=== PATIENT | female | born 1950 | race Caucasian/White ===

== ENCOUNTER 2024-07-16 01:58 | Emergency (ER) | payer MEDICARE, SELFPAY ==
[2024-07-16] VITALS (36 sets, daily range): BP systolic 125–181; BP diastolic 67–86; PULSE 78–117; RESP 15–31; TEMP 36–36.4; O2SAT 93–99
--- NOTE | ~2024-07-16 | CT_ITS ---
EXAMINATION: CTA chest PE protocol DATE: 07/16/2024 03:35 INDICATION: Cough. Dyspnea. TECHNIQUE: Computed tomography angiography (CTA) of the chest was performed with 100 mL Omnipaque-350 intravenous contrast timed to evaluate the pulmonary arteries. Coronal maximum intensity projection 3D-reconstructions were created by the technologist. Automated exposure control and iterative reconst ruction technique were employed. The dose-length product was 227.28 mGy-cm. COMPARISON: CT abdomen and pelvis 10/11/2004 FINDINGS: There is mild scarring at the lung apices. There is mild elevation of left hemidiaphragm. T here is mild atelectasis bilaterally. No pleural effusion. The heart size is normal. No pericardial e ffusion. There is no pulmonary embolus. There is thoracic dextroscoliosis and severe spondylosis. IMPRESSION: 1. No pulmonary embolus. Reviewed, dictated and finalized at location A. EMS PROGRAMMER IMPRESSION: 1. No pulmonary embolus.
--- NOTE | 2024-07-16 02:03 | ED_ITS ---
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 She recently moved back to the area from [place], [place]. She has had dyspnea and a cough for 3 weeks. She went to urgent care a couple weeks ago and was given azithromycin and levofloxacin but is no better. She has become significantly worse in the past 3-4 days. She has some lightheadedness but no N/V or diarrhea. Related Data Allergies Allergy/AdvReac Type Severity Reaction Status Date / Time Sulfa (Sulfonamide Allergy Intermediate Rash Verified 07/16/24 02:23 Antibiotics) Review of Systems 2 Review of Systems: All systems reviewed & are unremarkable except as noted in HPI and below Exam 2 Const: General: cooperative, healthy appearing, comfortable, no acute distress, well developed, alert, awake and Physically active O rientation/consciousness: oriented to person, oriented to place and oriented to time HENMT: Head: normal to inspection, normocephalic and atraumatic Ears: h earing grossly normal bilaterally and external ears normal Face/Nose/Sinus: N ormal external nose present Eyes: General: appearance normal, both eyes and all related structures P eriorbital: periorbital findings normal Sclera: sclerae normal Pupils: E qual, round and reactive pupils present Neck: Neck: normal visual inspection Chest: Chest palpation & inspection: normal inspection of the chest Resp: Effort & Inspection: normal respiratory effort, able to speak in complete sentences and no respiratory distress Other: Diffuse end expiratory wheezes. Cardio: Jugular venous distension: no JVD Rate: regular rate Rhythm: r egular rhythm GI: Inspection: normal to inspection GI Palp: Yes Soft to palpation A uscultation: normal bowel sounds Skin: General skin exam: normal color and no rashes or lesions noted Neuro: General: oriented to person, oriented to place and oriented to time Cranial nerves: Yes Equal, round and reactive pupils present Extrem: General: normal to inspection Course Course Emergency Course: Ordered labs, duoneb, EKG and CTA EKG showed NSR with a rate of 94, normal axis and no ST elevation/depression As there was severe leukocytosis blood cultures were ordered and antibiotics were started. CT of her lungs showed no evidence of pulmonary embolism or acute pulmonary process. DDx includes bronchitis vs asthma vs CHF with that later being less likely with a BNP of 114. Will treat with steroids, albuterol and Augmentin with doxycycline to cover for bronchitis/pneumonia and asthma. Vital Signs Vital signs: Vital Signs Temperature 96.8 F L 07/16/24 01:58 Pulse Rate 99 07/16/24 01:58 Respiratory Rate 20 07/16/24 01:58 Blood Pressure 166/85 H 07/16/24 01:58 Pulse Oximetry 93 07/16/24 01:58 Oxygen Delivery Room Air 07/16/24 01:58 Temperature 96.8 F L 07/16/24 01:58 Pulse Rate 85 07/16/24 02:47 Respiratory Rate 20 07/16/24 02:47 Blood Pressure 147/82 H 07/16/24 02:16 Pulse Oximetry 96 07/16/24 02:54 Oxygen Delivery Nasal Cannula 07/16/24 02:54 Oxygen Flow Rate 2 07/16/24 02:54 Medical Decision Making Vital Signs Vital Signs: Vital Signs Temperature 96.8 F L 07/16/24 01:58 Pulse Rate 99 07/16/24 01:58 Respiratory Rate 20 07/16/24 01:58 Blood Pressure 166/85 H 07/16/24 01:58 Pulse Oximetry 93 07/16/24 01:58 Oxygen Delivery Room Air 07/16/24 01:58 Temperature 96.8 F L 07/16/24 01:58 Pulse Rate 85 07/16/24 02:47 Respiratory Rate 20 07/16/24 02:47 Blood Pressure 147/82 H 07/16/24 02:16 Pulse Oximetry 96 07/16/24 02:54 Oxygen Delivery Nasal Cannula 07/16/24 02:54 Oxygen Flow Rate 2 07/16/24 02:54 Lab Data 07/16/24 02:40 07/16/24 02:40 Labs: Lab Results 07/16/24 07/16/24 Range/Units 02:40 02:46 WBC 22.9 H* (4.8-10.8) K/mm3 RBC 4.57 (4.20-5.40) M/mm3 Hgb 13.6 (11.7-13.8) g/dL Hct 42.4 H (35.0-42.0) % MCV 92.8 (78.0-102.0) fL MCH 29.8 (27.0-31.0) pg MCHC 32.1 (32-36) g/dL RDW 14.7 H (11.6-14.4) % Plt Count 401 (150-420) K/mm3 MPV 10.3 (9.2-11.8) fl Immature Gran % (Auto) Not Reportable Neut % (Auto) Not Reportable Lymph % (Auto) Not Reportable Erath % (Auto) Not Reportable Eos % (Auto) Not Reportable Baso % (Auto) Not Reportable Lymph # (Auto) Not Reportable [place]ath # (Auto) Not Reportable Eos # (Auto) Not Reportable Baso # (Auto) Not Reportable Abs Immat Gran (auto) Not Reportable Absolute Neuts (auto) Not Reportable Absolute Nucleated RBC Not Reportable Neutrophils % (Manual) 59 (46-73) % Band Neutrophils % 0 (0-6) % Lymphocytes % (Manual) 12 L (18-44) % Monocytes % (Manual) 15 H (3-9) % Eosinophils % (Manual) 14 H (1-6) % Basophils % (Manual) 0 (0-1) % Nucleated RBC % Not Reportable Abs Neuts (Manual) 13.51 H (1.7-7.2) K/mm3 Abs Lymphs (Manual) 2.74 (1.1-4.5) K/mm3 Abs Monocytes (Manual) 3.43 H (0.1-0.90) K/mm3 Absolute Eos (Manual) 3.20 H (0.02-0.50) K/mm3 Abs Basophils (Manual) 0.00 (0-0.1) K/mm3 Platelet Estimate Adequate (Adequate) Schistocytes Not Reportable Sodium 144 (136-145) mmol/L Potassium 3.7 (3.5-5.1) mmol/L Chloride 109 H (98-108) mmol/L Carbon Dioxide 27 (21-32) mmol/L Anion Gap 8 (4-12) mmol/L BUN 16 (7-18) mg/dL Creatinine 1.06 H (0.55-1.02) mg/dL Estim Creat Clear Calc 37 ml/min Estimated GFR 51 L (59 - ) Glucose 115 H (70-99) mg/dL Calculated Osmolality 300 H (285-295) mOsm/kg Calcium 9.0 (8.5-10.1) mg/dL Magnesium 2.1 (1.8-2.4) mg/dL Total Bilirubin 0.6 (0.00-1.00) mg/dL AST 13 L (15-37) U/L ALT 31 (14-59) U/L Alkaline Phosphatase 118 H (46-116) U/L Troponin I 6.2 (0.00-60.4) ng/L NT-Pro-B Natriuret Pep 114 (0-125) pg/mL Total Protein 6.0 L (6.4-8.2) g/dL Albumin 3.5 (3.4-5.0) g/dL Influenza A (RT-PCR) Negative (Negative) Influenza B (RT-PCR) Negative (Negative) RSV (RT-PCR) Negative (Negative) SARS-CoV-2 RNA (RT-PCR) Negative (Negative) ABG Data ABG results: 07/16/24 02:40 Puncture Site Right radial ABG pH 7.39 ABG pCO2 39.0 ABG pO2 82.4 ABG PO2/FiO2 Ratio Not Reportable ABG HCO3 23.1 ABG O2 Saturation 95.5 ABG O2 Content 19.0 ABG Base Excess -1.6 L A-a Gradient Not Reportable Oxyhemoglobin 94.3 O2 Delivery Device Nasal cannula O2 Liters/Min 2.0 Discharge Plan Discharge Clinical Impression: Bronchitis Patient Disposition: Home, Self-Care Condition: Stable Instructions: Acute Bronchitis (ED) Patient Language: Norwegian Prescriptions: New prednisone 50 mg tablet 50 mg PO DAILY Qty: 4 0RF benzonatate 200 mg capsule 200 mg PO BID PRN (Reason: cough) Qty: 14 0RF albuterol sulfate 90 mcg/actuation HFA aerosol inhaler 2 puff inhalation QID PRN (Reason: shortness of breath or wheezing) Qty: 8.5 0RF amoxicillin-pot clavulanate [Augmentin] 500-125 mg tablet 1 tablet PO TID Qty: 15 0RF doxycycline hyclate 100 mg tablet 100 mg PO DAILY Qty: 10 0RF Follow-up/Referrals: UNKNOWN,DOCTOR [Primary Care Provider] -
--- NOTE | 2024-07-16 02:04 | PC.NURSE ---
COVID PCR obtained and taken to lab
--- NOTE | 2024-07-16 02:13 | ECG_ITS ---
Test Date: 2024-07-16 02:08:11 Measurements Intervals [place] Rate: 94 P: 72 DE: 184 QRS: 54 QRSD: 102 T: 58 QT: 366 QTc: 458 Interpretive Statements SINUS RHYTHM No previous ECG available for comparison Electronically Signed On 07-16-2024 16:18:37 PSYCH SPECIALIST by Fabiano Larsen M.D.
[2024-07-16] MEDS: IPRATROPIUM 0.5 MG/ALBUTEROL SULFATE 2.5 MG AMPUL.NEB 3 ML INHALATION (02:35)
[2024-07-16 02:37] LABS: Base Excess ABG -1.6 mmol/L (0-2); HCO3 ABG 23.1 mmol/L (23-29); Oxygen Saturation ABG 95.5 % (95-97); Oxyhemoglobin 94.3 % (94-100); PO2 ABG 82.4 mmHg (75-85); pH ABG 7.39 (7.35-7.45)
[2024-07-16 02:47] LABS: Device NASAL CANNULA; Modified Allen's Test Pass; Site Drawn RIGHT RADIAL
[2024-07-16 02:48] LABS: Influenza A QL RT-PCR Negative (Negative); Influenza B QL RT-PCR Negative (Negative); RSV RNA, RT-PCR Negative (Negative); SARS-CoV-2 RNA PCR Negative (Negative)
[2024-07-16 02:49] LABS: Hematocrit 42.4 % (35.0-42.0); Hemoglobin 13.6 g/dL (11.7-13.8); Mean Corpuscular HGB Conc 32.1 g/dL (32-36); Mean Corpuscular Hemoglobin 29.8 pg (27.0-31.0); Mean Corpuscular Volume 92.8 fL (78.0-102.0); Mean Platelet Volume 10.3 fl (9.2-11.8); Platelet Count Result 401 K/mm3 (150-420); Red Blood Count 4.57 M/mm3 (4.20-5.40); Red Cell Distribution Width 14.7 % (11.6-14.4)
[2024-07-16 02:53] LABS: White Blood Count 22.9 K/mm3 (4.8-10.8)
[2024-07-16 03:09] LABS: Alanine Aminotransferase 31 U/L (14-59); Albumin Level 3.5 g/dL (3.4-5.0); Alkaline Phosphatase 118 U/L (46-116); Anion Gap 8 mmol/L (4-12); Aspartate Amino Transferase 13 U/L (15-37); Bilirubin,Total 0.6 mg/dL (0.00-1.00); Blood Urea Nitrogen 16 mg/dL (7-18); Carbon Dioxide 27 mmol/L (21-32); Chloride 109 mmol/L (98-108); Estimated CRCL calculation 37 ml/min; Estimated Glomerular Filt Rate 51; Glucose 115 mg/dL (70-99); Magnesium 2.1 mg/dL (1.8-2.4); NT Pro B Type Natriuretic Pept 114 pg/mL (0-125); Osmolality Calculated 300 mOsm/kg (285-295); Potassium 3.7 mmol/L (3.5-5.1); Sodium 144 mmol/L (136-145); Troponin I 6.2 ng/L (0.00-60.4)
[2024-07-16 03:11] LABS: Band Neutrophils Percent 0 % (0-6); Eosinophils Percent Manual 14 % (1-6); Lymphocytes Absolute Manual 2.74 K/mm3 (1.1-4.5); Lymphocytes Percent Manual 12 % (18-44); Monocytes Absolute Manual 3.43 K/mm3 (0.1-0.90); Monocytes Percent Manual 15 % (3-9); Neutrophils Absolute Manual 13.51 K/mm3 (1.7-7.2); Neutrophils Percent Manual 59 % (46-73)
[2024-07-16 03:12] LABS: Basophils Percent Manual 0 % (0-1); Platelet Estimate Adequate (Adequate)
[2024-07-16] MEDS: methylPREDNISolone SOD SUCC 125 MG VIAL IV PUSH (03:21)
[2024-07-16] MEDS: levoFLOXacin 750 MG/D5W 150 ML 750 MG/150 ML BAG 100 MG IVPB (03:31)
--- NOTE | 2024-07-16 04:03 | PC.NURSE ---
pt taken to bathroom via wheelchair
--- NOTE | 2024-07-16 05:55 | PC.NURSE ---
pt taken to bathroom via wheelchair for urine specimen
[2024-07-16 06:33] LABS: Add Urine Microscopic? YES; Appearance Urine Clear (Clear); Bilirubin Urine Negative (Negative); Blood Urine Negative (Negative); Color Urine Yellow (Yellow); Glucose Urine UA Negative (Negative); Ketones Urine Negative (Negative); Leukocyte Esterase Ur Negative (Negative); Nitrate Urine Negative (Negative); Protein Urine Trace (Negative); Specific Grav Ur 1.015 (1.010-1.020); pH Urine 5.5 (5.0-8.0)
[2024-07-16 06:37] LABS: Calcium Oxalate Crystals Urine Present /hpf; RBC Urine None seen /hpf (0-2); Squamous Epithelial Cell Urine Occasional /hpf (Few); WBC Urine 0-3 /hpf (0-3)
[2024-07-16 06:38] LABS: Bacteria Urine Rare /hpf
[2024-07-16 06:57] LABS: Total Hemoglobin 14.3 g/dL (12.0-18.0)
--- NOTE | 2024-07-17 14:21 | PC.NURSE ---
final blood cultures x2 reviewed. no growth to date
--- NOTE | 2024-07-17 14:29 | PC.NURSE ---
blood culture reports x2 reviewed. no growth to date
== END 2024-07-16 07:15 | disposition home or self-care (01) ==
PROVIDERS: Emergency Provider Family Medicine
DX: J40 Bronchitis, not specified as acute or chronic (principal); I10 Essential (primary) hypertension; E78.5 Hyperlipidemia, unspecified; Z79.51 Long term (current) use of inhaled steroids; Z20.822 Contact with and (suspected) exposure to COVID-19
CPT/HCPCS: 36415; 36600; 71275; 80053; 81001; 82805; 83735; 83880; 84484; 85018; 85025; 87040; 87637; 93005; 94640; 96365; 96375; 99284; J1956; J2919; Q9967

== ENCOUNTER 2024-07-21 09:19 | Emergency (ER) | payer MEDICARE, SELFPAY ==
[2024-07-21 09:19] VITALS: BP 157/97; PULSE 90; RESP 20; TEMP 36.4; O2SAT 96
[2024-07-21 09:20] VITALS: O2SAT 96
--- NOTE | 2024-07-21 09:49 | ED.URI ---
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 She was prescribed doxycycline, Augmentin, albuterol, prednisone and benzonatate. She had blood work which revealed an elevated white cell count of 23,000. The patient had been on steroids prior to getting the blood work. She had chemistry labs which was unremarkable. She had a normal troponin /BNP, negative flu/RSV / COVID, negative CT chest for PE and lung infiltrates. Subsequently the patient is noted to have -- ongoing cough which is productive of mucoid sputum -- dyspnea on exertion -- generalized rash which is maculopapular. Rash is not itchy. Patient does not know when the rash appeared. No fever or chills MD elicited complaint: cough Pertinent past history: asthma Onset (ago): day(s) Consistency: constant Severity: moderate Description of mucous: clear Able to tolerate fluids by mouth: Yes Exacerbating factors: exertion Associated symptoms: denies other symptoms, cough and shortness of breath Treatments prior to arrival: antibiotics and other ( prednisone, albuterol, benzonatate,) Related Data Allergies Allergy/AdvReac Type Severity Reaction Status Date / Time Sulfa (Sulfonamide Allergy Intermediate Rash Verified 07/21/24 09:33 Antibiotics) Review of Systems Review of Systems: All systems reviewed & are unremarkable except as noted in HPI and below Constitutional: Constitutional: Reports as per HPI, Reports no additional constitutional complaints and Reports fatigue Eyes: Eyes: Reports as per HPI and Reports no additional eye complaints ENT: Reports system reviewed and no additional complaints, except as documented and Reports as per HPI Cardiovascular: Cardiovascular: Reports as per HPI and Reports no additional cardiovascular complaints Respiratory: Respiratory: Reports as per HPI, Reports no additional respiratory complaints, Reports cough and Reports dyspnea Gastrointestinal: Gastrointestinal: Reports as per HPI and Reports no additional gastrointestinal complaints Genitourinary: Genitourinary: Reports no additional female genitourinary complaints and Reports as per HPI Musculoskeletal: Musculoskeletal: Reports no additional musculoskeletal complaints and Reports as per HPI Integumentary/Breasts: Skin/Breast: Reports system reviewed and no additional complaints, except as docu and Reports as per HPI Neurologic: Reports system reviewed and no additional complaints, except as documented and Reports as per HPI Psychiatric: Psychiatric: Reports no additional psychiatric complaints and Reports as per HPI Endocrine: Endocrine: Reports no additional endocrine complaints and Reports as per HPI Hematologic/Lymphatic: Hematologic/Lymphatic: Reports no additional hematologic/lymphatic complaints and Reports as per HPI Allergic/Immunologic: Allergic/Immunologic: Reports no additional allergic/immunologic complaints and Reports as per HPI Exam Narrative: blood pressure is 157/97. Oxygen saturation 96% on room air with a respiratory rate of 20. Const: General: no acute distress Nutritional Appearance: well nourished Orientation/consciousness: patient oriented x3 Limitations: no limitations HENMT: Head: normal to inspection Ears: external ears normal Face/Nose/Sinus: Normal external nose present Face and sinus: normal facial exam Mouth: Yes Normal oral and palatal mucosa present Throat: posterior oropharynx normal Eyes: Conjunctivae: conjunctivae normal Pupils: Equal, round and reactive pupils present EOM: EOMs intact bilaterally Direct Ophthalmoscopy: no photophobia Other: Right eye missing Neck: Neck: normal visual inspection and no lymphadenopathy Chest: Chest palpation & inspection: normal inspection of the chest Resp: Effort & Inspection: normal respiratory effort Auscultation: wheezes Cardio: Rate: regular rate Rhythm: regular rhythm GI: GI Palp: Yes Soft to palpation Auscultation: normal bowel sounds : General: Yes no CVA tenderness Back/Spine/Pelvis: Back: no CVA tenderness Cervical Spine: collar present Skin: General skin exam: normal color Rashes: no rashes Wounds: no wounds Neuro: General: patient oriented x3, moves all extremities, no meningeal signs, no focal motor deficits and CN's II-XI intact bilaterally Cranial nerves: Yes Nystagmus not present Speech: normal speech Gait exam (Neuro): Normal gait present Extrem: General: normal to inspection and no clubbing, cyanosis or edema Psych: Mental Status: mental status grossly normal Attitude: cooperative Course Course Emergency Course: bronchospastic disease. The patient has a family history of allergies. The patient has multiple allergies in addition to bronchospasm. Patient is a nonsmoker. Does not have any pets. Would have a follow-up with a home theater specialist for PFTs. Foot treat her with steroids and add Symbicort maculopapular rash could be secondary to radiocontrast/amoxicillin Vital Signs Vital signs: Vital Signs Temperature 36.4 C 07/21/24 09:19 Pulse Rate 90 07/21/24 09:19 Respiratory Rate 20 07/21/24 09:19 Blood Pressure 157/97 H 07/21/24 09:19 Pulse Oximetry 96 07/21/24 09:19 Oxygen Delivery Room Air 07/21/24 09:19 Temperature 36.4 C 07/21/24 09:19 Pulse Rate 90 07/21/24 09:19 Respiratory Rate 20 07/21/24 09:19 Blood Pressure 157/97 H 07/21/24 09:19 Pulse Oximetry 96 07/21/24 09:20 Oxygen Delivery Room Air 07/21/24 09:20 MDM - URI/Sore Throat MDM Narrative Medical decision making narrative: bronchospasm asthma diffuse maculopapular rash Differential Diagnosis Differential diagnosis: Likely viral infection, bronchitis and influenza Medical Records Attestation: I reviewed the patient's medical records. Lab Data Attestation: I reviewed the patient's lab results. Discharge Plan Discharge Clinical Impression: Acute maculopapular rash Asthma Qualifiers: Asthma severity: moderate Asthma persistence: persistent Asthma complication type: with status asthmaticus Qualified Code(s): J45.42 - Moderate persistent asthma with status asthmaticus Patient Disposition: Home, Self-Care Condition: Stable Instructions: Antibiotic Form, Asthma (ED), Acute Rash (ED) Additional Instructions: follow-up with lung specialist for PFT and evaluation of bronchospasm Patient Language: Lithuanian Prescriptions: New budesonide-formoterol [Symbicort] 160-4.5 mcg/actuation HFA aerosol inhaler 2 puff inhalation Q12H Qty: 10.2 0RF prednisone 50 mg tablet 50 mg PO DAILY Qty: 7 0RF No Action prednisone 50 mg tablet 50 mg PO DAILY Qty: 4 0RF benzonatate 200 mg capsule 200 mg PO BID PRN (Reason: cough) Qty: 14 0RF albuterol sulfate 90 mcg/actuation HFA aerosol inhaler 2 puff inhalation QID PRN (Reason: shortness of breath or wheezing) Qty: 8.5 0RF amoxicillin-pot clavulanate [Augmentin] 500-125 mg tablet 1 tablet PO TID Qty: 15 0RF doxycycline hyclate 100 mg tablet 100 mg PO DAILY Qty: 10 0RF Follow-up/Referrals: UNKNOWN,DOCTOR [Primary Care Provider] - Time of Disposition: 10:06
[2024-07-21] MEDS: methylPREDNISolone SOD SUCC 125 MG VIAL IM (10:13)
== END 2024-07-21 10:15 | disposition home or self-care (01) ==
PROVIDERS: Emergency Provider Internal Medicine Critical Care Medicine
DX: R21 Rash and other nonspecific skin eruption (principal); J45.42 Moderate persistent asthma with status asthmaticus; I10 Essential (primary) hypertension
CPT/HCPCS: 96372; 99283; J2919

== ENCOUNTER 2024-11-11 14:00 | Outpatient (CLI) | payer MEDICARE, SELFPAY ==
--- OUTSIDE RECORDS SUMMARY | 2024-11-11 14:04 | XMS_ITS | Clinical Summary ---
Author Organization [facility] Administrative Offices Address [address] [place] [address] Care Team Providers Care Credit Collections Analyst Name Role Phone Unavailable Primary Care Provider Unavailabl e Allergies Active Allergy Reactions Criticality Noted Date Comments Sulfa (Sulfonamide Antibiotics) Hives High 01/05 Medications rOPINIRole (REQUIP) 1 mg tablet 08/28/19 24 Active losartan (COZAAR) 50 mg tablet 07/19/19 24 Active aspirin (ECOTRIN EC) 81 mg Tablet, Delayed Release (E.C.) Take 81 mg by mouth daily. Active atorvastatin (LIPITOR) 40 mg tablet Take 40 mg by mouth daily. Active prednisoLONE acetate (PRED FORTE) 1 % suspension Administer 1 Drop in left eye see administration instructions. 10 mL 1 03/22/20 24 Active ketorolac tromethamine (ACULAR) 0.5 % solution Administer 1 Drop in left eye 4 times daily. 5 mL 1 03/22/20 24 Active omega-3 fatty acids-fish oil 300-1,000 mg Capsule Take by mouth 2 times daily. Active multivitamin (DAILY-LORENA) tablet Take 1 Tablet by mouth daily. Active ascorbic acid (VITAMIN C) 100 mg Tablet, Chewable Take 100 mg by mouth. Active Active Problems No known active problems Encounters Date Type Department Care Team Description 09/22/2024 External Device Data [facility] ABSTRACTION Provider, Abstract 09/11/2024 External Device Data [facility] ABSTRACTION Provider, Abstract 09/11/2024 External Device Data [facility] ABSTRACTION Provider, Abstract 09/08/2024 External Device Data [facility]CTION Provider, Abstract 08/25/2024 External Device Data [facility]STRACTION Provider, Abstract from Last 3 Months Social History Tobacco Use Types Packs/Day Years Used Date Smoking Tobacco: Never Passive Smoke Exposure: Never Smokeless Tobacco: Never Tobacco Cessation:Counseling Given: No Alcohol Use Standard Drinks/Week Comments Not Currently 0 (1 standard drink = 0.6 oz pur e alcohol) Feeling Safe Answer Date Recorded Are you in a relationship wi th someone who hurts you emotionally and/or physically? 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 Gender Identity Not on file Sexual Orientation Not on file Last Filed Vital Signs Vital Sign Reading Time Taken Comments Blood Pressure 154/99 02/19/2024 10:34 AM CDT Pulse 73 02/19/2024 10:34 AM CDT Temperature 36.4 C (97.6 F) 02/19/2024 10:34 AM CDT Respiratory Rate 16 02/19/2024 9:17 AM CDT Oxygen Saturation 97% 02/19/2024 10:34 AM CDT Inhaled Oxygen Concentration - - Weight 69.4 kg (153 lb) 02/19/2024 9:17 AM CDT Height 162.6 cm (5' 4 ) 02/18/2024 1:55 PM CDT Body Mass Index 26.26 02/18/2024 1:55 PM CDT Plan of Treatment Health Maintenance Due Date Last Done Comments DTAP/TDAP/TD VACCINES (1 - Tdap) 02/01/1971 PNEUMOCOCCAL VACCINE 50+ YEARS (1 of 2 - PCV) 02/01/19 71 BREAST CANCER SCREENING 1992 COLORECTAL SCREENING 02/01/1997 Colorectal Cancer Screening 02/01/1997 FIT-DNA Q 3 years 02/01/1997 FIT/FOBT Q 1 year 02/01/1997 Flex Sig/CT Colonography Q 5 years 02/01/1997 ZOSTER VACCINE (1 of 2) 02/01/2002 OSTEOPOROSIS SCREENING 02/01/2017 INFLUENZA VACCINE (#1) 2024 RSV VACCINE (60+ or ) (1 - 1-dose 75+ series) 02/01/2027 Medical Devices Implanted Type Area Landfill Gas Collection System Operator Device Identifier Shelf Expiration Date Model / Serial / Lot Lens Iol Georgina Crum 23.5 [id number] - [id number] Implanted:Qty: 1 on 02/19/2024 by Javed Spivey MD at [facility] Left: Eye [employer]. 06/06/2026 [id number] / [id number] / Insurance [place] [id number] [facility] [id number] Advance Directives For more information, please contact: [phone] * Full Code (Latest Code Status on File) Date Activated Date Inactivated Comments 02/19/2024 9:11 AM 02/19/2024 12:51 PM
[2024-11-11 14:15] LABS: Basophils Percent Auto 0.8 % (0.0-1.0); Eosinophils Absolute Auto 0.68 K/mm3 (0.02-0.50); Eosinophils Percent Auto 5.3 % (1.0-6.0); Hematocrit 42.6 % (35.0-42.0); Hemoglobin 13.3 g/dL (11.7-13.8); Immature Granulocyte Absolute 0.04 K/mm3 (0.00-0.00); Immature Granulocyte Percent A 0.3 % (0.0-0.0); Lymphocytes Absolute Auto 3.66 K/mm3 (1.10-4.50); Lymphocytes Percent Auto 28.8 % (18.0-42.0); Mean Corpuscular HGB Conc 31.2 g/dL (32-36); Mean Corpuscular Hemoglobin 29.1 pg (27.0-31.0); Mean Corpuscular Volume 93.2 fL (78.0-102.0); Mean Platelet Volume 9.7 fl (9.2-11.8); Monocytes Absolute Auto 1.04 K/mm3 (0.10-0.90); Monocytes Percent Auto 8.2 % (2.0-11.0); Neutrophils Percent Auto 56.6 % (50.0-70.0); Platelet Count Result 364 K/mm3 (150-420); Red Blood Count 4.57 M/mm3 (4.20-5.40); Red Cell Distribution Width 13.9 % (11.6-14.4); White Blood Count 12.7 K/mm3 (4.8-10.8)
[2024-11-11 16:41] LABS: Alanine Aminotransferase 29 U/L (6-35); Albumin Level 4.3 g/dL (3.5-5.1); Alkaline Phosphatase 104 U/L (38-126); Anion Gap 3 mmol/L (4-12); Aspartate Amino Transferase 30 U/L (14-36); Bilirubin,Total 0.9 mg/dL (0.2-1.3); Blood Urea Nitrogen 17 mg/dL (7-17); Calcium 9.2 mg/dL (8.4-10.2); Carbon Dioxide 26 mmol/L (22-30); Chloride 113 mmol/L (98-107); Estimated Glomerular Filt Rate > 60; Glucose 86 mg/dL (65-110); HDL Direct 47 mg/dL; Osmolality Calculated 294 mOsm/kg (285-295); Potassium 4.5 mmol/L (3.4-5.0); Sodium 142 mmol/L (137-145); Total Protein 6.1 g/dL (6.3-8.2)
[2024-11-11 16:52] LABS: Thyroid Stimulating Hormone Reflex 1.48 u/IU/mL (0.36-3.74)
[2024-11-11 17:24] LABS: Cholesterol 215 mg/dL (0-200); LDL Cholesterol Calculated 118 mg/dL (<130); Triglycerides 248 mg/dL (0-150)
== END 2024-11-11 14:01 | disposition home or self-care (01) ==
LOC: CHSLAB 14:02
PROVIDERS: PCP Family Medicine; Visit Provider Family Medicine
DX: E03.9 Hypothyroidism, unspecified (principal); I10 Essential (primary) hypertension
CPT/HCPCS: 36415; 80053; 80061; 84443; 85025

== ENCOUNTER 2025-05-18 09:33 | Outpatient (CLI) | payer MEDICARE, SELFPAY ==
--- OUTSIDE RECORDS SUMMARY | 2007-07-22 02:38 | XMS_ITS | Continuity of Care Document ---
Author Organization [facility] Address [address] [place] [address] [address] [place] [address] Phone Care Team Providers Care Dogman/Woman Name Role Phone Chan Coronado Unavailable Unavailable Procedures Procedure Date Eye Exam, New Patient Refraction Advance Directives Directive Yes / No Effective Date File Name No Information Encounters Encounter Description Practice Location Reason(s) For Visit Diagnoses Date Provider Providers Copied on Encounter [facility], [address] [place] [address] [address], [place], [place], [id number], [place] tel:[phone] [facility] No Information [address] , [address], [place], [address], [place]. tel:[phone] Referring Provider: Marshal Santana MD [facility], [address] [place] [address], [address]. tel:[phone] Family History Family Member Type Diagnosis Age At Onset No Information Payers Payer name Insurance type Covered alliance party ID Authoriza tion(s) No Information Social History Type Description Quantity Date Captured Comments Sex Female Smoking Status No Information Chief Complaint And Reason For Visit No Information Reason For Referral Reason For Referral No Information History Of Present Illness Encounter Date Complaint History Of Prese nt Illness No Information Functional Status Date Functional Assessmen t No Information Instructions Date Instruction Additional Infor mation No Information Assessments Type Assessment Date No Information Patient Care Teams Name Effective Dates (start - stop) Status Members No Information
[2025-05-18 10:01] LABS: Hematocrit 42.4 % (35.0-42.0); Hemoglobin 13.7 g/dL (11.7-13.8); Immature Granulocyte Percent A 0.3 % (0.0-0.0); Lymphocytes Absolute Auto 3.26 K/mm3 (1.10-4.50); Mean Corpuscular HGB Conc 32.3 g/dL (32-36); Mean Corpuscular Hemoglobin 30.5 pg (27.0-31.0); Mean Corpuscular Volume 94.4 fL (78.0-102.0); Nucleated Red Blood Cells Absolute Auto 0.00 K/mm3 (0.00-0.00); Nucleated Red Blood Cells Perc 0.0 % (0-0.0); Platelet Count Result 422 K/mm3 (150-420); Red Blood Count 4.49 M/mm3 (4.20-5.40); White Blood Count 11.5 K/mm3 (4.8-10.8)
[2025-05-18 10:14] LABS: MALB Creatinine Ratio 13.4 mg/g (0-30)
--- OUTSIDE RECORDS SUMMARY | 2025-05-18 10:27 | XMS_ITS | Clinical Summary ---
Author Organization [facility] Administrative Offices Address [address] [place] [address] Care Team Providers Care Boarder Machine Name Role Phone Unavailable Primary Care Provider [...] Encounters Date Type Department Care Team Description 04/27/2025 External Device Data [facility] ABSTRACTION Provider, Abstract 04/26/2025 External Device Data [facility] ABSTRACTION Provider, Abstract 03/29/2025 External Device Data [facility] ABSTRACTION Provider, Abstract 03/22/2025 External Device Data [facility] ABSTRACTION Provider, Abstract 03/15/2025 External Device Data [facility] ABSTRACTION Provider, Abstract 02/23/2025 External Device Data [facility] ABSTRACTION Provider, Abstract [...] on file 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 06/06/2026 [id number] / [id number] / Insurance DR CHAPMAN, [place] [id number] [facility] [id number] Advance Directives For more information, please contact: [phone] * Full Code (Latest Code Status on File) Date Activated Date Inactivated Comments 02/19/2024 9:11 AM 02/19/2024 12:51 PM
[2025-05-18 10:30] LABS: Alanine Aminotransferase 28 U/L (6-35); Albumin Level 4.5 g/dL (3.5-5.1); Alkaline Phosphatase 90 U/L (38-126); Anion Gap 8 mmol/L (4-12); Aspartate Amino Transferase 26 U/L (14-36); Blood Urea Nitrogen 20 mg/dL (7-17); Calcium 9.8 mg/dL (8.4-10.2); Carbon Dioxide 27 mmol/L (22-30); Chloride 113 mmol/L (98-107); Cholesterol 193 mg/dL (0-200); Estimated Glomerular Filt Rate > 60; Glucose 96 mg/dL (65-110); HDL Direct 49 mg/dL; Osmolality Calculated 308 mOsm/kg (285-295); Potassium 4.4 mmol/L (3.4-5.0); Sodium 148 mmol/L (137-145); Total Protein 6.3 g/dL (6.3-8.2); Triglycerides 372 mg/dL (<150)
[2025-05-24 13:12] LABS: Bilirubin,Total 0.4 mg/dL (0.2-1.3)
== END 2025-05-18 09:34 | disposition home or self-care (01) ==
LOC: CHSLAB 09:34
PROVIDERS: PCP Family Medicine; Visit Provider Family Medicine
DX: I10 Essential (primary) hypertension (principal)
CPT/HCPCS: 36415; 80053; 80061; 82043; 85025